=== PATIENT | male | born 1960 | race Caucasian/White ===

== ENCOUNTER 2025-01-13 21:46 | Emergency (ER) | payer OTHER ==
[~2025-01-13] VITALS: Ht 167.6 cm; Wt 99.8 kg
[~2025-01-13 21:46] MED LIST: IBUHYD PO; OXYACE5T PO; PROM25 PO
[2025-01-13 21:49] VITALS: BP 122/78
[2025-01-13] MEDS ORDERED: Robaxin750 MG PO (23:37)
[2025-01-13] MEDS ORDERED: Voltaren100 GM TOP (23:37)
== END 2025-01-13 23:53 | disposition home or self-care (01) ==
LOC: ER 21:46
DX: S39.012A Strain of muscle, fascia and tendon of lower back, initial encounter (principal); M25.511 Pain in right shoulder; X58.XXXA Exposure to other specified factors, initial encounter
CPT/HCPCS: 99282; A9270